=== PATIENT | male | born 1990 | race African-American/Black ===

== ENCOUNTER 2023-02-22 05:40 | Emergency (ER) | payer OTHER, SELFPAY ==
[2023-02-22 05:44] VITALS: BP 158/94; PULSE 78; RESP 16; TEMP 36.9; O2SAT 100; BMI 21.9
--- NOTE | 2023-02-22 06:15 | ED_ITS ---
HPI - Abdominal Pain General Chief Complaint: Abdominal Pain Stated Complaint: flank pank abd pain Time Seen by Provider: 02/22/23 05:41 History of Present Illness HPI narrative: This 32-year-old male presents for evaluation of abdominal pain going into his back. He states he has a history of chronic pancreatitis. His girlfriend initially was the chief historian stating that he is seeking consultation with [facility] after being treated for his chronic pancreatitis in [place]. He states that they are not helping him at [place] and he has had chronic pancreatitis for the past 5 years. She states initially that he has been taking Tylenol without relief of his pain and he is having dry heaves. I had reviewed his OARRS report prior to going into the room and it shows that he received 56, 5mg oxycodone 2 days ago at [facility]. After some gentle prodding they admitted that he was in [facility] 2 days ago at pain management. He states to me that the pain management doctor did not give him what works for his pain. He states that he needs 10 mg oxycodone and 5 mg oxycodone do not work for him. He also states that, despite the fact that they stated that they had not been seen for his pancreatitis, that he had an ultrasound done that showed inflammation in his pancreas. They did not want to CT scan him because he has had so many CT scans this year. They state that he is supposed to get a nerve block to treat the chronic pain he has- Related Data Home Medications Medication Instructions Recorded Confirmed albuterol sulfate 90 mcg/actuation inhalation 02/22/23 aerosol inhaler (Ventolin HFA) famotidine 20 mg tablet mg 02/22/23 Allergies Allergy/AdvReac Type Severity Reaction Status Date / Time NSAIDS (Non-Steroidal AdvReac Unknown Verified 02/22/23 05:48 Anti-Inflamma Review of Systems ROS Status of ROS 10 or more systems reviewed and unremarkable except as noted in history and below PFSH PFSH Social History Smoking status: Never smoker Exam Narrative Exam Narrative: Nurses note and vital signs reviewed and patient is not hypoxic. General: Nontoxic, tall, thin, -Macanese male, no respiratory distress, no active vomiting Skin: Warm, dry, no pallor noted. There is no rash noted. Head: Normocephalic, atraumatic Eye: Normal conjunctiva, no drainage, EOMI. PERRL, no scleral icterus Ears, Nose, Mouth, and Throat: oral mucosa is moist. Cardiovascular: Regular Rate and Rhythm Respiratory: Patient is in no distress, no accessory muscle use, lungs are clear to auscultation, no wheezing, rales or rhonchi Back: non-tender, no CVA tenderness bilaterally to percussion. GI: Normal bowel sounds, flat, firm, diffusely tender Musculoskeletal: The patient has no evidence of calf tenderness, no pitting edema, symmetrical pulses noted bilaterally Neurological: A&O x4, normal speech Psychiatric: Cooperative Constitutional Vital Signs, click to edit/add: Last Vital Signs Temp 98.5 F 02/22/23 05:44 Pulse 78 02/22/23 05:44 Resp 16 02/22/23 05:44 BP 158/94 H 02/22/23 05:44 Pulse Ox 100 02/22/23 05:44 O2 Del Method Room Air 02/22/23 05:44 Course Vital Signs Vital signs: Vital Signs Temperature 98.5 F 02/22/23 05:44 Pulse Rate 78 02/22/23 05:44 Respiratory Rate 16 02/22/23 05:44 Blood Pressure 158/94 H 02/22/23 05:44 Pulse Oximetry 100 02/22/23 05:44 Oxygen Delivery Method Room Air 02/22/23 05:44 Temperature 98.5 F 02/22/23 05:44 Pulse Rate 78 02/22/23 05:44 Respiratory Rate 16 02/22/23 05:44 Blood Pressure 158/94 H 02/22/23 05:44 Pulse Oximetry 100 02/22/23 05:44 Oxygen Delivery Method Room Air 02/22/23 05:44 MDM - Abdominal Pain MDM Narrative Medical decision making narrative: Pt signed out to DR COCHRAN at shift change Lab Data Labs: Lab Results 02/22/23 Range/Units 06:37 WBC 5.3 (4.0-11.0) 10^3/uL RBC 4.77 (4.70-6.10) 10^6/uL Hgb 13.2 L (14.0-18.0) g/dL Hct 41.7 L (42.0-54.0) % MCV 87.4 (80.0-94.0) fL MCH 27.7 (25.9-34.0) pg MCHC 31.7 (29.9-35.2) g/dL RDW 16.3 H (11.0-15.0) % Plt Count 115 L (150-450) 10^3/uL MPV 12.1 (9.5-13.5) fL Discharge Plan Discharge Chief Complaint: Abdominal Pain Clinical Impression: Abdominal pain Patient Disposition: Still a Patient Prescriptions / Home Meds: No Action famotidine 20 mg tablet albuterol sulfate [Ventolin HFA] 90 mcg/actuation HFA aerosol inhaler INHALATION Referrals: Physician,Non-Staff, [Physician] - 1 week
[2023-02-22] MEDS: 0.9 % SODIUM CHLORIDE 1,000 ML 1000 ML IV (06:43)
[2023-02-22] MEDS: MORPHINE SULFATE 4 MG/ML VIAL IV (06:43)
[2023-02-22] MEDS: ONDANSETRON PF 4 MG/2 ML VIAL IV (06:43)
[2023-02-22 06:57] LABS: Hematocrit 41.7 % (42.0-54.0); Hemoglobin 13.2 g/dL (14.0-18.0); Mean Corpuscular HGB Conc 31.7 g/dL (29.9-35.2); Mean Corpuscular Hemoglobin 27.7 pg (25.9-34.0); Mean Corpuscular Volume 87.4 fL (80.0-94.0); Mean Platelet Volume 12.1 fL (9.5-13.5); Platelet Count 115 10^3/uL (150-450); Red Blood Count 4.77 10^6/uL (4.70-6.10); White Blood Count 5.3 10^3/uL (4.0-11.0)
[2023-02-22 06:58] LABS: Red Cell Distribution Width 16.3 % (11.0-15.0)
[2023-02-22] MEDS: DIPHENHYDRAMINE HCL 50 MG/ML (1ML) VIAL 25 MG IV (07:00)
[2023-02-22 07:08] LABS: Alanine Aminotransferase 32 U/L (16-63); Albumin Globulin Ratio 1.1; Albumin Level 3.6 g/dL (3.4-5.0); Alkaline Phosphatase 79 U/L (46-116); Anion Gap 12.5; Aspartate Amino Transferase 19 U/L (15-37); BUN Creatinine Ratio 8.3; Bilirubin Total 0.2 mg/dL (0.2-1.0); Calcium 8.5 mg/dL (8.5-10.1); Carbon Dioxide 27.7 mmol/L (21.0-32.0); Chloride 102 mmol/L (98-107); Estimated GFR (African America >60 (>=60); Estimated GFR (Non-African Ame >60 (>=60); Globulin 3.2 g/dL; Glucose 99 mg/dL (74-106); Potassium 4.2 mmol/L (3.5-5.1); Sodium 138 mmol/L (136-145); Total Protein 6.8 g/dL (6.4-8.2)
[2023-02-22 07:10] LABS: Lactate/Lactic Acid 0.9 mmol/L (0.4-2.0)
[2023-02-22 07:26] LABS: Anisocytosis 1+; Basophils Abs Manual 0.05 10^3/uL (0.00-0.10); Eosinophils Absolute Manual 0.05 10^3/uL (0.00-0.70); Lymphocytes Absolute Manual 1.96 10^3/uL (1.20-3.80); Monocytes Absolute Manual 0.42 10^3/uL (0.30-0.80)
[2023-02-22 08:09] VITALS: BP 125/87; PULSE 77; RESP 16; TEMP 36.7; O2SAT 100
== END 2023-02-22 08:11 | disposition home or self-care (01) ==
PROVIDERS: Emergency Provider Emergency Medicine; PCP Nurse Practitioner Primary Care
DX: R10.9 Unspecified abdominal pain (principal); R11.2 Nausea with vomiting, unspecified; M54.6 Pain in thoracic spine; M54.50 Low back pain, unspecified; Z79.899 Other long term (current) drug therapy
CPT/HCPCS: 36415; 80053; 83605; 83690; 85027; 96361; 96374; 96375; 99284

== ENCOUNTER 2024-09-09 17:20 | Emergency (ER) | payer MEDICARE, MEDICAID, SELFPAY ==
[2024-09-09 18:20] VITALS: BP 135/86; PULSE 62; TEMP 36.8; O2SAT 100; BMI 21.9
--- NOTE | 2024-09-09 18:38 | ED.GENADUL1 ---
HPI HPI - General Adult General Chief complaint: Abdominal Pain Stated complaint: SEVERE STOMACH PAINS FOR 3 DAYS, NAUSEA Time Seen by Provider: 09/09/24 18:21 Source: patient and family Mode of arrival: Wheelchair Limitations: no limitations History of Present Illness HPI narrative: The patient is a 34-year-old -[place] male who presents to the emergency department today for evaluation of concerns for abdominal pain. Patient is here with another family member and both are very vague historians and not very forthcoming with providing much history. The patient stated multiple times he has a history of pancreatitis and back pain. When asked if he is having any abdominal pain he did multiple times that he has a history of pancreatitis. His family member who was present at the bedside states he has had tactile temperatures and diarrhea-like stools. He has taken Tylenol and Zofran for his symptoms with no improvement. When asked if he has had any nausea or vomiting he did not provide a response. No prior abdominal surgeries. Related Data Home Medications ?Medication ?Instructions ?Recorded ?Confirmed albuterol sulfate 90 mcg/actuation 2 inh inhalation Q4H PRN shortness 02/22/23 09/09/24 aerosol inhaler (Ventolin HFA) of breath or wheezing famotidine 20 mg tablet 20 mg PO DAILY 02/22/23 09/09/24 dicyclomine 20 mg tablet 20 mg PO TID 09/09/24 09/09/24 Allergies Allergy/AdvReac Type Severity Reaction Status Date / Time NSAIDS (Non-Steroidal AdvReac Unknown Unknown Verified 09/09/24 18:20 Anti-Inflamma Review of Systems ROS Status of ROS 10 or more systems reviewed and unremarkable except as noted in history and below [facility] Social History Smoking status: Never smoker Little interest or pleasure in doing things: not at all Feeling down, depressed, or hopeless: not at all Exam Narrative Exam Narrative: Constituational: Awake/ alert, no apparent distress, well hydrated HENMT: normocephalic, external ears normal, moist oral mucous membranes and oropharynx normal Eyes: EOMI and conjunctivae normal Neck: ROM intact Chest: inspection of chest normal Respiratory: Normal respiratory effort, clear to auscultation bilaterally Cardio: regular rate and regular rhythm GI: soft to palpation and non-tender, guarded behavior at times, normal bowel sounds, no CVA tenderness Back: nontender MSK: ROM intact, +NVI Skin: no rashes or petechiae Neuro: no focal deficits Psych: mental status grossly normal Constitutional Vital Signs, click to edit/add: Last Vital Signs Temp 98.3 F 09/09/24 18:20 Pulse 62 09/09/24 18:20 Resp 16 09/09/24 18:20 BP 135/86 09/09/24 18:20 Pulse Ox 100 09/09/24 18:20 O2 Del Method Room Air 09/09/24 18:20 Course Vital Signs Vital signs: Vital Signs Temperature 98.3 F 09/09/24 18:20 Pulse Rate 62 09/09/24 18:20 Respiratory Rate 16 09/09/24 18:20 Blood Pressure 135/86 09/09/24 18:20 Pulse Oximetry 100 09/09/24 18:20 Oxygen Delivery Method Room Air 09/09/24 18:20 Temperature 98.3 F 09/09/24 18:20 Pulse Rate 62 09/09/24 18:20 Respiratory Rate 16 09/09/24 18:20 Blood Pressure 135/86 09/09/24 18:20 Pulse Oximetry 100 09/09/24 18:20 Oxygen Delivery Method Room Air 09/09/24 18:20 Medical Decision Making MDM Narrative Medical decision making narrative: Is an overall nontoxic and well-appearing 34-year-old -[place] male who presented to the emergency department today for evaluation of vague complaints of abdominal pain and mentioned multiple times that he has a history of. Initial examination and vital signs overall stable. No acute abdominal findings on exam. Following exam of the patient she mentioned he has allergies to morphine and NSAIDs and had requested Dilaudid. Patient does appear somewhat drug-seeking and behavior does seem malingering related to his abdominal pain. That he would be provided symptom management for his complaints however any Dilaudid at this time as his pain does not seem to be that significant on exam. Labs obtained. Nursing was unable to establish IV access following multiple attempts. Was subsequently informed by nursing that patient did elope from the emergency department. Medical Records Medical records reviewed: Yes I reviewed the patient's medical records Lab Data Labs: Lab Results 09/09/24 Range/Units 18:40 WBC 9.4 (4.0-11.0) 10^3/uL RBC 5.49 (4.70-6.10) 10^6/uL Hgb 15.2 (14.0-18.0) g/dL Hct 46.1 (42.0-54.0) % MCV 84.0 (80.0-94.0) fL MCH 27.7 (25.9-34.0) pg MCHC 33.0 (29.9-35.2) g/dL RDW 16.1 H (11.0-15.0) % Plt Count 138 L (150-450) 10^3/uL MPV 12.8 (9.5-13.5) fL Neut % (Auto) 79.5 H (43.0-75.0) % Lymph % (Auto) 12.2 L (20.5-60.0) % Frederick % (Auto) 7.0 (1.7-12.0) % Eos % (Auto) 0.4 L (0.9-7.0) % Baso % (Auto) 0.2 (0.2-2.0) % Neut # (Auto) 7.5 H (1.4-6.5) 10^3/uL Lymph # (Auto) 1.2 (1.2-3.8) 10^3/uL Frederick # (Auto) 0.7 (0.3-0.8) 10^3/uL Eos # (Auto) 0.0 (0.0-0.7) 10^3/uL Baso # (Auto) 0.0 (0.0-0.1) 10^3/uL Abs Immat Gran (auto) 0.07 H (0.00-0.03) 10^3/uL Imm/Tot Granulo (auto) 0.7 H (0.0-0.5) % Sodium 136 (136-145) mmol/L Potassium 4.1 (3.5-5.1) mmol/L Chloride 101 (98-107) mmol/L Carbon Dioxide 30.4 (21.0-32.0) mmol/L Anion Gap 8.7 BUN 11.0 (7.0-18.0) mg/dL Creatinine 0.94 (0.70-1.30) mg/dL Est GFR ( Amer) >60 (>=60 mL/min/1.73m^2) Est GFR (Non-Af Amer) >60 (>=60 mL/min/1.73m^2) BUN/Creatinine Ratio 11.7 Glucose 121 H (74-106) mg/dL Calcium 9.4 (8.5-10.1) mg/dL Total Bilirubin 1.5 H (0.2-1.0) mg/dL AST 31 (15-37) U/L ALT 32 (16-63) U/L Alkaline Phosphatase 101 (46-116) U/L Total Protein 7.8 (6.4-8.2) g/dL Albumin 4.6 (3.4-5.0) g/dL Globulin 3.2 g/dL Albumin/Globulin Ratio 1.4 Lipase 522.0 H (16.0-77.0) U/L Discharge Plan Discharge Stand Alone Forms: Portal Instructions Chief Complaint: Abdominal Pain Clinical Impression: Abdominal pain Patient Disposition: Left Against Medical Advice Prescriptions / Home Meds: No Action famotidine 20 mg tablet 20 mg PO DAILY albuterol sulfate [Ventolin HFA] 90 mcg/actuation HFA aerosol inhaler 2 inh INHALATION Q4H PRN (Reason: shortness of breath or wheezing) dicyclomine 20 mg tablet 20 mg PO TID Print Language: Gabonese Referrals: Roberto Lamar NP [Primary Care Provider] - 1 week Discharge Date/Time: 09/09/24 19:15
[2024-09-09 19:04] LABS: Basophils Percent Auto 0.2 % (0.2-2.0); Eosinophils Percent Auto 0.4 % (0.9-7.0); Hematocrit 46.1 % (42.0-54.0); Hemoglobin 15.2 g/dL (14.0-18.0); Immature Granulocytes Abs Auto 0.07 10^3/uL (0.00-0.03); Immature Granulocytes Pct Auto 0.7 % (0.0-0.5); Lymphocytes Absolute Auto 1.2 10^3/uL (1.2-3.8); Lymphocytes Percent Auto 12.2 % (20.5-60.0); Mean Corpuscular Hemoglobin 27.7 pg (25.9-34.0); Mean Platelet Volume 12.8 fL (9.5-13.5); Monocytes Absolute Auto 0.7 10^3/uL (0.3-0.8); Neutrophils Absolute Auto 7.5 10^3/uL (1.4-6.5); Neutrophils Percent Auto 79.5 % (43.0-75.0); Platelet Count 138 10^3/uL (150-450); Red Blood Count 5.49 10^6/uL (4.70-6.10); Red Cell Distribution Width 16.1 % (11.0-15.0); White Blood Count 9.4 10^3/uL (4.0-11.0)
--- NOTE | 2024-09-09 19:16 | PC.NURSE ---
i walked into this patient's room to find this patient awake and alert talking to a female friend. I introduced myself to this patient and his female friend. i explained to his the plan of care for his him, ekg, ct abdomen. i asked if he allow me to try a iv, since the other nurse unable to start on, they was able to to get blood draw. this patient said yes so i asked if this patient could allow me to put ekg patch on first. this patient then said I am going to leave, I told him they he can always come back
[2024-09-09 19:24] LABS: Alanine Aminotransferase 32 U/L (16-63); Albumin Globulin Ratio 1.4; Albumin Level 4.6 g/dL (3.4-5.0); Alkaline Phosphatase 101 U/L (46-116); Anion Gap 8.7; Aspartate Amino Transferase 31 U/L (15-37); BUN Creatinine Ratio 11.7; Bilirubin Total 1.5 mg/dL (0.2-1.0); Calcium 9.4 mg/dL (8.5-10.1); Carbon Dioxide 30.4 mmol/L (21.0-32.0); Chloride 101 mmol/L (98-107); Estimated GFR (African America >60 (>=60 mL/min/1.73m^2); Estimated GFR (Non-African Ame >60 (>=60 mL/min/1.73m^2); Globulin 3.2 g/dL; Glucose 121 mg/dL (74-106); Potassium 4.1 mmol/L (3.5-5.1); Sodium 136 mmol/L (136-145); Total Protein 7.8 g/dL (6.4-8.2)
== END 2024-09-09 19:15 | disposition left against medical advice (07) ==
PROVIDERS: Nurse Practitioner; Emergency Provider Emergency Medicine; PCP Nurse Practitioner Primary Care
DX: R10.9 Unspecified abdominal pain (principal); Z53.29 Procedure and treatment not carried out because of patient's decision for other reasons
CPT/HCPCS: 36415; 80053; 80307; 83690; 85025; 99284